=== PATIENT | male | born 1940 | race Caucasian/White ===

== ENCOUNTER 2017-02-25 16:44 | Inpatient (IN) ==
[2017-02-25] MEDS ORDERED: DILTIAZEM 50 MG/10 ML VIAL IV STA (17:06)
--- NOTE | 2017-02-25 17:12 | Emergency Department Note ---
Penny Recinos Rolonda, am scribing for, and in the presence of, Jimbo Izaguirre MD 17: 07. Zina Recinos James D, MD, personally performed the services described in this documentation, ascribed by Jane Francis in my presence, and it is both accurate and complete . Arrival - Arrival Chief Complaint: Arrhythmia/Palpitations Stated Complaint: rapid heart rate ED Nursing Triage Note: C/o palpitations-onset one hour ago. Denies SOB or CP. Mode of Arrival: Wheelchair Limitations: No Limitations Source: Patient, Old Records Reviewed, RN Notes Reviewed - History of Present Illness HPI Narrative: Pt is a 77 y/o male who presents to the ED with c/o heart palpitations with an onset of x1 hour ago. Pt has a PMHx of DM. Pt states that he can feel when his heart "gets in and out of rhythm". He states that he last f/u with yesterday. Pt denies CP, sweating, vertigo, and SOB. No other complaint/pain in ED. Onset (ago): hour(s) Consistency: constant Severity: moderate Severity scale (1-10): 3 Allergies/Adverse Reactions: Allergies Allergy/AdvReac Type Severity Reaction Status Date / Time No Known Allergies Allergy Verified 02/25/17 16:48 Review of System - Review of System 12 point system: reviewed and no additional remarkable complaints except as stated - Review of System Constitutional: Absent: fever Eyes: Absent: discharge, redness Head/Ears/Nose/Throat: Absent: earache Respiratory: Absent: cough Cardiovascular: Present: palpitations. Absent: chest pain Gastrointestinal: Absent: abdominal pain, nausea Genitourinary male: Absent: dysuria Musculoskeletal: Absent: arm pain, back pain Medical,Surgical,& Family Hx - Social History Smoking Status: Never smoker Frequency of Alcohol Use: None Type of Drug Use: None Exam Vital Signs: Vital Signs Temperature 97.4 F L 02/25/17 16:58 Pulse Rate 149 H 02/25/17 16:58 Respiratory Rate 98 H 02/25/17 16:58 Blood Pressure 96/54 02/25/17 16:58 O2 Sat by Pulse Oximetry 98 02/25/17 16:47 GENERAL: This is a well-nourished well-developed white male in no apparent distress. VITAL SIGNS: Reviewed HEENT: Head is atraumatic and normocephalic. Pupils are equal round react to light. Extraocular movements are intact. Oropharynx is benign with moist mucous membranes. NECK: Neck is soft and supple without tenderness. There are no masses. There is no lymphadenopathy. LUNGS: Lungs are clear to auscultation. Chest rises symmetrically. There is no chest wall tenderness. CV: Heart is irregularly irregular with rapid rate, without murmurs rubs or gallops. ABDOMEN: Abdomen is soft, nontender to palpation. There are no abdominal abnormal masses palpated. There is no organomegaly. Bowel sounds are present and active. SKIN: Skin is warm and dry. No rash. EXTREMITIES: Patient has full range of motion without tenderness. There is no pedal edema. NEUROLOGIC: Awake alert and oriented 4. Cranial nerves II through XII are grossly intact. Motor is 5 over 5 in all extremities bilaterally. Course - Consultations Consultation #1: Discussed with Dr. Gavin Muñoz. Patient will be admitted to their service. Initial orders written for him. He will assume care of patient upon their arrival to the [facility]. Time: 17:38 Results - Labs CBC & BMP: 02/25/17 17:22 Lab Results: I have reviewed the patients labs - EKG EKG results: interpreted by ERMD - Impressions EKG: Atrial fib with RVR, rate 149, right bundle branch block, nonspecific ST-T wave changes. - Diagnostic Findings Procedure: Chest x-ray: image reviewed by me (Old median sternotomy, no pleural effusions, no infiltrates.) Disposition Clinical Impression: Atrial fibrillation with RVR Case discussed with: patient Disposition: Still a Patient Condition: Stable Time of Disposition: 17:40
[2017-02-25] MEDS ORDERED: DILTIAZEM 100 MG VIAL.ADD IV ONE (17:14)
[2017-02-25] MEDS ORDERED: SODIUM CHLORIDE 0.9% 100 ML IV ONE (17:15)
[2017-02-25] MEDS ORDERED: DILTIAZEM 50 MG/10 ML VIAL IV ONE (17:15)
--- NOTE | 2017-02-25 17:18 | EKG Report ---
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
--- NOTE | 2017-02-25 17:26 | XRay Report ---
XR chest 1V portable Indication: Shortness of breath Comparison: None available Findings: The heart and mediastinum are within normal limits in size and configuration with cardiac surgery changes. The pulmonary vascularity is normal in caliber. No lung infiltrates, effusions, pneumothorax or other abnormality is demonstrated. Impression: No acute cardiac pulmonary disease. PROCEDURE INTERPRETED AT [facility] [place] DEPARTMENT OF RADIOLOGY Final Report Signed by: Dr. Tremaine Pérez
[2017-02-25 17:28] LABS: Basophils % 0.2 % (0.0-0.8); Eosinophils # 0.4 10*3/uL (0.0-0.87); Eosinophils % 4.3 % (0.00-10.9); Hematocrit 40.7 VOL% (42.0-52.0); Hemoglobin 14.1 GM/DL (14.0-18.0); Immature Granulocytes % 0.2 %; Immature Granulocytes Absolute 0.02 #; Lymphocytes # 2.1 10*3/uL (1.4-4.0); Lymphocytes % 24.2 % (21.2-54.2); Mean Corpuscular HGB Conc 34.6 GM/DL (32-36); Mean Corpuscular Hemoglobin 30 PG (27-34); Mean Corpuscular Volume 85.5 FL (87-102); Mean Platelet Volume 10.4 FL (9.6-12.0); Monocytes # 0.8 10*3/uL (0.11-0.8); Monocytes % 8.8 % (1.7-12.7); Neutrophils # 5.5 10*3/uL (1.4-7.4); Neutrophils % 62.3 % (38.7-73.9); Platelet Count 163 T/CUMM (130-400); Red Blood Count 4.76 MC/CUMM (3.8-5.5); Red Cell Distribution Width 11.9 % (9.3-17.3); White Blood Count 8.8 T/CUMM (4-12)
[2017-02-25] MEDS ORDERED: DILTIAZEM INJ 100 MG in SODIUM CHLORIDE 0.9% 100 ML IV SCH (17:30)
[2017-02-25 17:40] LABS: PT Patient Result 11.1 SECS; Partial Thromboplastin Time 28.2 SECS (0-40)
[2017-02-25 18:17] LABS: Alanine Aminotransferase 17 U/L (16-61); Albumin 3.4 G/DL (3.4-5.0); Alkaline Phosphatase 113 U/L (45-117); Aspartate Amino Transferase 15 U/L (0-37); Blood Urea Nitrogen 8 MG/DL (7-18); Calcium 9.2 MG/DL (8.5-10.1); Glucose 229 MG/DL (74-106); Osmolality,Calculated 272.2 MOS/KG (273-304); Potassium 4.1 MMOL/L (3.5-5.1); Sodium 134 MMOL/L (136-145); Total Protein 6.6 G/DL (6.4-8.3); Troponin I Only < 0.015 NG/ML (0.00-0.045)
[2017-02-25] MEDS ORDERED: DEXTROSE 50% 25 GM/50 ML VIAL IV PRN (20:13)
[2017-02-25] MEDS ORDERED: MAGNESIUM SULF RIDER 4 GM in PREMIX 1 EACH IV PRN (20:13)
[2017-02-25] MEDS ORDERED: GLUCAGON 1 MG VIAL IM PRN (20:13)
[2017-02-25] MEDS ORDERED: MAGNESIUM SULF RIDER 2 GM in PREMIX 1 EACH IV PRN (20:13)
[2017-02-25] MEDS ORDERED: ONDANSETRON 4 MG/2 ML VIAL IV PRN (20:13)
[2017-02-25] MEDS ORDERED: ENOXAPARIN 40 MG/0.4 ML SYRINGE SUBCUT SCH (20:30)
[2017-02-25] MEDS: INSULIN LISPRO 100 UNIT/ML SUBCUT SCH (20:55)
[2017-02-25] MEDS: SODIUM CHLORIDE 0.9% 1,000 ML IV SCH (21:02)
[2017-02-26] MEDS: INSULIN LISPRO 100 UNIT/ML SUBCUT SCH ×3 (07:51→16:25)
[2017-02-26] MEDS ORDERED: ASCORBIC ACID 500 MG TABLET PO SCH ×2 (15:27→21:00)
[2017-02-26 15:50] VITALS: BP 141/86
--- NOTE | 2017-02-26 15:50 | Cardiology History & Physical ---
Assessment and Plan (1) Atrial fibrillation with RVR Status: Acute Assessment and plan: The patient presented with atrial flutter with rapid ventricular response. He is converted to sinus rhythm. He is now feeling back to normal. He had a low magnesium level so I am going to supplement this. I am going to add vitamin C to his medical regimen. As noted in the HPI, he did not have any other symptoms associated with the palpitations. I think we can discharge him home with outpatient follow-up with his primary blind cleaner in the near future. Current Visit: Yes (2) Coronary artery disease Status: Acute Current Visit: Yes (3) History of heart bypass surgery Status: Acute Current Visit: Yes (4) History of aortic valve replacement with bioprosthetic valve Status: Acute Current Visit: Yes (5) Paroxysmal atrial fibrillation Status: Acute Current Visit: Yes (6) Chronic anticoagulation Status: Acute Current Visit: Yes (7) Hypertension Status: Acute Current Visit: Yes (8) Hyperlipidemia Status: Acute Current Visit: Yes History of Present Illness History of present illness: Mr. Krishnamurthy is a 77 year old male with a history of multiple medical problems including coronary artery disease status post bypass surgery and bioprosthetic aortic valve replacement in 2012, paroxysmal atrial fibrillation, hypertension, and hyperlipidemia. Patient came into the hospital after feeling palpitations for about an hour. In the emergency room he was found to be in atrial flutter with rapid ventricular response. The symptoms were moderate to severe. There were no specific exacerbating or relieving factors. There were no associated symptoms such as nausea or diaphoresis. He had a low magnesium level. He was started on IV diltiazem and his magnesium was repleted and he has converted back to sinus rhythm. He did not have any anginal symptoms, heart failure symptoms, orthopnea, PND, or peripheral edema associated with this. He is now feeling completely back to normal. He tells me that he has had multiple similar episodes in the past. Home Medications Medication Instructions Recorded Confirmed Type Apixaban [Eliquis] 5 mg PO BID 02/25/17 02/25/17 History Atorvastatin Calcium [Atorvastatin 40 mg PO 1600 02/25/17 02/25/17 History Calcium] Carvedilol [Carvedilol] 25 mg PO BID 02/25/17 02/25/17 History Ferrous Sulfate 325 mg PO TID 02/25/17 02/25/17 History Levothyroxine Sodium 25 mcg PO QAM 02/25/17 02/25/17 History [Levothyroxine Sodium] Magnesium Oxide 400 mg PO QAM 02/25/17 02/25/17 History Metformin HCl [Metformin HCl] 500 mg PO BID 02/25/17 02/25/17 History Tamsulosin HCl [Tamsulosin HCl] 0.4 mg PO QAM 02/25/17 02/25/17 History glipiZIDE [Glipizide] 10 mg PO BID 02/25/17 02/25/17 History raNITIdine HCl [Ranitidine HCl] 150 mg PO 1600 02/25/17 02/25/17 History Home Medications Medication Instructions Recorded Confirmed Type Apixaban [Eliquis] 5 mg PO BID 02/25/17 02/25/17 History Atorvastatin Calcium [Atorvastatin 40 mg PO 1600 02/25/17 02/25/17 History Calcium] Carvedilol [Carvedilol] 25 mg PO BID 02/25/17 02/25/17 History Ferrous Sulfate 325 mg PO TID 02/25/17 02/25/17 History Levothyroxine Sodium 25 mcg PO QAM 02/25/17 02/25/17 History [Levothyroxine Sodium] Magnesium Oxide 400 mg PO QAM 02/25/17 02/25/17 History Metformin HCl [Metformin HCl] 500 mg PO BID 02/25/17 02/25/17 History Tamsulosin HCl [Tamsulosin HCl] 0.4 mg PO QAM 02/25/17 02/25/17 History glipiZIDE [Glipizide] 10 mg PO BID 02/25/17 02/25/17 History raNITIdine HCl [Ranitidine HCl] 150 mg PO 1600 02/25/17 02/25/17 History Allergies Allergy/AdvReac Type Severity Reaction Status Date / Time No Known Allergies Allergy Verified 02/25/17 16:48 12 point system: reviewed and no additional remarkable complaints except as stated Medical,Surgical,& Family Hx - Medical History Neurology: History of: Cerebrovascular Accident - Surgical History Cardiac Surgeries: Sugical HX of: Cardiac Surgery (CABG) - Family History Family History: Reports;: Family Diabetes - Social History Smoking Status: Never smoker Frequency of Alcohol Use: None Type of Drug Use: None Cardiology Physical Exam - Constitutional Vitals: Vital Signs Temp Pulse Resp BP Pulse Ox 97.1 F L 61 12 145/76 97 02/26/17 12:00 02/26/17 12:00 02/26/17 12:00 02/26/17 12:00 02/26/17 12:00 Intake and Output 02/25/17 02/26/17 02/26/17 23:59 07:59 15:59 Intake Total 83 / 83 0 / 0 Output Total 100 / 100 1400 / 1400 Balance - -1400 / -1400 Intake: IV Cardizem Inj 100 mg In Ns 100 ml @ 10 MG/HR 10 mls /hr IV TITRATE BHAVANA Rx#: [id number] Oral 50 / 50 0 / 0 Output: Urine 100 / 100 1400 / 1400 Other: Voiding Method Urinal Urinal # Bowel Movements 1 Weight 93.61 kg 93.61 kg Patient Weight 02/26/17 23:59 Weight 93.61 kg Exam: General: Appears well developed, well nourished, no apparent distress HEENT: Normocephalic, atraumatic Neck: Supple Neck, Midline Trachea, No Bruit, No JVD Cardiac: Regular rhythm, 2/6 systolic murmur, no gallop, no rub Lungs: Clear to auscultation, No Wheeze, Rales, Rhonchi Neuro: Cranial Nerve 2-12 Intact, Motor Function Grossly Intact Abdomen: Soft, Active Bowel Sounds, No Masses, No Pulsations/Bruits Skin: Normal color, no rash Extremities: No Clubbing, No Cyanosis, No Edema, Normal Upper Extr. Pulses Musculoskeletal: No acute abnormality noted Psychiatric: The patient does not appear to be anxious or depressed Result/EKG - Labs CBC & BMP: 02/25/17 17:22 02/25/17 17:22 Lab Results: I have reviewed the past 24 hour labs Labs: Laboratory Results - last 24 hr 02/25/17 02/25/17 02/25/17 17:22 17:22 17:22 WBC 8.8 RBC 4.76 Hgb 14.1 Hct 40.7 L MCV 85.5 L MCH 30 MCHC 34.6 RDW 11.9 Plt Count 163 MPV 10.4 Neut % (Auto) 62.3 Lymph % (Auto) 24.2 [place] % (Auto) 8.8 Eos % (Auto) 4.3 Baso % (Auto) 0.2 Neut # (Auto) 5.5 Lymph # (Auto) 2.1 [place] # (Auto) 0.8 Eos # (Auto) 0.4 Baso # (Auto) 0.0 Immature Gran % 0.2 Nucleated RBC % 0.0 Immature Gran # 0.02 Nucleated RBCs # 0.00 INR 1.0 PT Patient/Control Mix 11.1 Circ Anticoag PTT 28.2 Sodium Potassium Chloride Carbon Dioxide Anion Gap BUN Creatinine GFR Calculation BUN/Creatinine Ratio Glucose POC Glucose Calculated Osmolality Calcium Magnesium 1.6 L Total Bilirubin AST ALT Alkaline Phosphatase Troponin I Total Protein Albumin Globulin Albumin/Globulin Ratio TSH 3rd Generation 02/25/17 02/25/17 02/26/17 17:22 20:53 07:43 WBC RBC Hgb Hct MCV MCH MCHC RDW Plt Count MPV Neut % (Auto) Lymph % (Auto) [place] % (Auto) Eos % (Auto) Baso % (Auto) Neut # (Auto) Lymph # (Auto) [place] # (Auto) Eos # (Auto) Baso # (Auto) Immature Gran % Nucleated RBC % Immature Gran # Nucleated RBCs # INR PT Patient/Control Mix Circ Anticoag PTT Sodium 134 L Potassium 4.1 Chloride 100 Carbon Dioxide 26 Anion Gap 12.1 BUN 8 Creatinine 1.10 GFR Calculation 82 BUN/Creatinine Ratio 7.00 Glucose 229 H POC Glucose 134 H 111 H Calculated Osmolality 272.2 L Calcium 9.2 Magnesium Total Bilirubin 0.50 AST 15 ALT 17 Alkaline Phosphatase 113 Troponin I < 0.015 Total Protein 6.6 Albumin 3.4 Globulin 3.2 Albumin/Globulin Ratio 1.0 L TSH 3rd Generation 2.190 02/26/17 11:39 WBC RBC Hgb Hct MCV MCH MCHC RDW Plt Count MPV Neut % (Auto) Lymph % (Auto) [place] % (Auto) Eos % (Auto) Baso % (Auto) Neut # (Auto) Lymph # (Auto) [place] # (Auto) Eos # (Auto) Baso # (Auto) Immature Gran % Nucleated RBC % Immature Gran # Nucleated RBCs # INR PT Patient/Control Mix Circ Anticoag PTT Sodium Potassium Chloride Carbon Dioxide Anion Gap BUN Creatinine GFR Calculation BUN/Creatinine Ratio Glucose POC Glucose 184 H Calculated Osmolality Calcium Magnesium Total Bilirubin AST ALT Alkaline Phosphatase Troponin I Total Protein Albumin Globulin Albumin/Globulin Ratio TSH 3rd Generation - EKG EKG results: interpreted by me
--- NOTE | 2017-02-26 16:00 | Discharge Summary ---
Hospital Course - Hospital Course Hospital Course: Mr. Krishnamurthy is a 77 year old male with a history of multiple medical problems including coronary artery disease status post bypass surgery and bioprosthetic aortic valve replacement in 2013, paroxysmal atrial fibrillation, hypertension, and hyperlipidemia. Patient came into the hospital after feeling palpitations for about an hour. In the emergency room he was found to be in atrial flutter with rapid ventricular response. The symptoms were moderate to severe. There were no specific exacerbating or relieving factors. There were no associated symptoms such as nausea or diaphoresis. He had a low magnesium level. He was started on IV diltiazem and his magnesium was repleted and he has converted back to sinus rhythm. He did not have any anginal symptoms, heart failure symptoms, orthopnea, PND, or peripheral edema associated with this. He is now feeling completely back to normal. He tells me that he has had multiple similar episodes in the past. He is already on appropriate chronic anticoagulation and medical therapy. I am going to add vitamin C and supplement his magnesium. I am going to discharge him home at this time for outpatient follow-up with his primary pre certification specialist . Diagnosis - Discharge Diagnosis (1) Atrial fibrillation with RVR Status: Acute (2) Coronary artery disease Status: Acute (3) History of heart bypass surgery Status: Acute (4) History of aortic valve replacement with bioprosthetic valve Status: Acute (5) Paroxysmal atrial fibrillation Status: Acute (6) Chronic anticoagulation Status: Acute (7) Hypertension Status: Acute (8) Hyperlipidemia Status: Acute Discharge Plan - Discharge Data Disposition: Disch To Home/Self Care - Discharge Medications New Ascorbic Acid [Vitamin C] 1,000 mg PO BID #120 tablet Continue Levothyroxine Sodium 25 mcg PO QAM glipiZIDE [Glipizide] 10 mg PO BID Tamsulosin HCl 0.4 mg PO QAM Apixaban [Eliquis] 5 mg PO BID Carvedilol 25 mg PO BID Atorvastatin Calcium 40 mg PO 1600 raNITIdine HCl [Ranitidine HCl] 150 mg PO 1600 Metformin HCl 500 mg PO BID Ferrous Sulfate 325 mg PO TID Changed Magnesium Oxide 400 mg PO BID #0 - Follow Up or Referral Follow Up: Jayashree Rodriguez MD [Physician] - (He can follow-up with her as scheduled in a few weeks.) - Forms/Instructions Exam - Constitutional Vitals: Period Temp Pulse Resp BP Sys/Warner Pulse Ox Last 24 Hr 97.0 F-97.8 F 58-149 12-98 96-149/54-90 96-100 Discharge Results Labs on day of discharge: Labs from last 24 hours 02/26/17 02/26/17 02/25/17 11:39 07:43 20:53 WBC RBC Hgb Hct MCV MCH MCHC RDW Plt Count MPV Neut % (Auto) Lymph % (Auto) [place] % (Auto) Eos % (Auto) Baso % (Auto) Neut # (Auto) Lymph # (Auto) [place] # (Auto) Eos # (Auto) Baso # (Auto) Immature Gran % Nucleated RBC % Immature Gran # Nucleated RBCs # INR PT Patient/Control Mix Circ Anticoag PTT Sodium Potassium Chloride Carbon Dioxide Anion Gap BUN Creatinine GFR Calculation BUN/Creatinine Ratio Glucose POC Glucose 184 H 111 H 134 H Calculated Osmolality Calcium Magnesium Total Bilirubin AST ALT Alkaline Phosphatase Troponin I Total Protein Albumin Globulin Albumin/Globulin Ratio TSH 3rd Generation 02/25/17 02/25/17 02/25/17 17:22 17:22 17:22 WBC 8.8 RBC 4.76 Hgb 14.1 Hct 40.7 L MCV 85.5 L MCH 30 MCHC 34.6 RDW 11.9 Plt Count 163 MPV 10.4 Neut % (Auto) 62.3 Lymph % (Auto) 24.2 [place] % (Auto) 8.8 Eos % (Auto) 4.3 Baso % (Auto) 0.2 Neut # (Auto) 5.5 Lymph # (Auto) 2.1 [place] # (Auto) 0.8 Eos # (Auto) 0.4 Baso # (Auto) 0.0 Immature Gran % 0.2 Nucleated RBC % 0.0 Immature Gran # 0.02 Nucleated RBCs # 0.00 INR PT Patient/Control Mix Circ Anticoag PTT Sodium 134 L Potassium 4.1 Chloride 100 Carbon Dioxide 26 Anion Gap 12.1 BUN 8 Creatinine 1.10 GFR Calculation 82 BUN/Creatinine Ratio 7.00 Glucose 229 H POC Glucose Calculated Osmolality 272.2 L Calcium 9.2 Magnesium 1.6 L Total Bilirubin 0.50 AST 15 ALT 17 Alkaline Phosphatase 113 Troponin I < 0.015 Total Protein 6.6 Albumin 3.4 Globulin 3.2 Albumin/Globulin Ratio 1.0 L TSH 3rd Generation 2.190 02/25/17 17:22 WBC RBC Hgb Hct MCV MCH MCHC RDW Plt Count MPV Neut % (Auto) Lymph % (Auto) [place] % (Auto) Eos % (Auto) Baso % (Auto) Neut # (Auto) Lymph # (Auto) [place] # (Auto) Eos # (Auto) Baso # (Auto) Immature Gran % Nucleated RBC % Immature Gran # Nucleated RBCs # INR 1.0 PT Patient/Control Mix 11.1 Circ Anticoag PTT 28.2 Sodium Potassium Chloride Carbon Dioxide Anion Gap BUN Creatinine GFR Calculation BUN/Creatinine Ratio Glucose POC Glucose Calculated Osmolality Calcium Magnesium Total Bilirubin AST ALT Alkaline Phosphatase Troponin I Total Protein Albumin Globulin Albumin/Globulin Ratio TSH 3rd Generation DS: Provider Date of admission: 02/25/17 19:49 Primary care physician: . No PCP Attending physician on admission: Kyle Muñoz MD Discharging clinician: Kyle Muñoz MD
[2017-02-26] MEDS: SODIUM CHLORIDE 0.9% 1,000 ML IV SCH (16:24)
== END 2017-02-26 17:54 | disposition home or self-care (01) | DRG 310 ==
LOC: N.ED 16:44 → N.EDINP 19:49 → N.TELES 19:59
PROVIDERS: ADMIT Internal Medicine Cardiovascular Disease; ATTEND Internal Medicine Cardiovascular Disease

== ENCOUNTER 2017-05-03 14:59 | Observation (INO) ==
--- NOTE | 2017-05-03 15:57 | XRay Report ---
2 view chest 05/03/2017 3:39 PM Indication: Chest pain, arrhythmia Comparison: February 25, 2017 Findings: Cardiomediastinal contours are stable post coronary artery bypass with sternotomy wires and midline. Granulomatous changes within the right lung base. No acute osseous abnormalities. Visualized upper abdomen demonstrates no acute pathology. Impression: No acute cardiopulmonary findings PROCEDURE INTERPRETED AT [facility] DEPARTMENT OF RADIOLOGY Final Report Signed by: Germania Nash MD
[2017-05-03 15:59] LABS: Basophils % 0.4 % (0.0-0.8); Eosinophils # 0.2 10*3/uL (0.0-0.87); Eosinophils % 2.2 % (0.00-10.9); Hematocrit 40.9 VOL% (42.0-52.0); Hemoglobin 13.7 GM/DL (14.0-18.0); Immature Granulocytes % 0.3 %; Immature Granulocytes Absolute 0.02 #; Lymphocytes # 1.9 10*3/uL (1.4-4.0); Lymphocytes % 24.4 % (21.2-54.2); Mean Corpuscular HGB Conc 33.5 GM/DL (32-36); Mean Corpuscular Hemoglobin 29 PG (27-34); Mean Corpuscular Volume 86.5 FL (87-102); Mean Platelet Volume 10.1 FL (9.6-12.0); Monocytes # 0.7 10*3/uL (0.11-0.8); Monocytes % 8.4 % (1.7-12.7); Neutrophils % 64.3 % (38.7-73.9); Platelet Count 170 T/CUMM (130-400); Red Blood Count 4.73 MC/CUMM (3.8-5.5); Red Cell Distribution Width 12.1 % (9.3-17.3); White Blood Count 7.8 T/CUMM (4-12)
[2017-05-03 16:07] LABS: PT Patient Result 10.9 SECS
--- NOTE | 2017-05-03 16:24 | Emergency Department Note ---
Arrival - Arrival Chief Complaint: Arrhythmia/Palpitations Stated Complaint: Heart rate. low BP ED Nursing Triage Note: states that early this am. pt had low bp and increased heart rate. states it went away and started again about 1400 this afternoon Mode of Arrival: Wheelchair Limitations: No Limitations Source: Patient, Family Time Seen by Provider: 05/03/17 16:12 - History of Present Illness HPI Narrative: The patient complains of an episode of weakness this morning during which he was having palpitations and felt like his heart was beating rapidly. This resolved but returned around 2:00 this afternoon. It resolved again prior to arrival. The also reports his blood pressure was low at 77/50. He denies any shortness of breath, chest pain, diaphoresis, nausea, vomiting or any other symptoms. Patient has a history of similar episodes in the past felt to be due to hypomagnesemia. He cannot tell me what rhythm he was going into but says he has not had any episodes since discharge in February. He has been taking p.o. magnesium and has not missed any doses. According to the old chart the patient has a history of bypass, valve replacement and paroxysmal atrial fibrillation. The patient has a history of hypothyroidism and is on Synthroid. He reports no recent increases in his Synthroid. Allergies/Adverse Reactions: Allergies Allergy/AdvReac Type Severity Reaction Status Date / Time No Known Allergies Allergy Verified 02/25/17 16:48 Home Medications: Home Medications Medication Instructions Recorded Confirmed Type Apixaban [Eliquis] 5 mg PO BID 02/25/17 05/03/17 History Carvedilol 25 mg PO BID 02/25/17 05/03/17 History Ferrous Sulfate 325 mg PO TID 02/25/17 05/03/17 History Levothyroxine Sodium 25 mcg PO QAM 02/25/17 05/03/17 History Metformin HCl 500 mg PO BID 02/25/17 05/03/17 History Tamsulosin HCl 0.4 mg PO QAM 02/25/17 05/03/17 History glipiZIDE [Glipizide] 10 mg PO BID 02/25/17 05/03/17 History raNITIdine HCl [Ranitidine HCl] 150 mg PO QAM 02/25/17 05/03/17 History Ascorbic Acid [Vitamin C] 1,000 mg PO BID #120 tablet 02/26/17 05/03/17 Rx Magnesium Oxide 400 mg PO BID #0 02/26/17 05/03/17 Rx Pravastatin Sodium 40 mg PO BEDTIME 05/03/17 05/03/17 History Review of System - Review of System 12 point system: reviewed and no additional remarkable complaints except as stated - Review of System Constitutional: Present: weakness. Absent: diaphoresis, fever Head/Ears/Nose/Throat: Absent: nasal drainage, sore throat Respiratory: Absent: cough, respiratory distress, wheezing Cardiovascular: Present: palpitations. Absent: chest pain, dyspnea on exertion , orthopnea, edema, syncope Gastrointestinal: Absent: nausea, vomiting Musculoskeletal: Absent: arm pain, back pain, neck pain Medical,Surgical,& Family Hx - Medical History Cardio: History of: Cardiac Dysrhythmia Neurology: History of: Cerebrovascular Accident Endocrine: History of: Diabetes Mellitus (NIDDM), Dyslipidemia Gastrointestinal: History of: GERD - Surgical History Cardiac Surgeries: Sugical HX of: Cardiac Surgery (CABG versus valve replacement ) - Family History Family History: Reports;: Family Diabetes - Social History Smoking Status: Never smoker Frequency of Alcohol Use: None Type of Drug Use: None Exam Physical Examination: GENERAL: Alert. No acute distress. HEENT: Normocephalic and atraumatic. There is no nasal drainage. No pharyngeal erythema or exudate. NECK: Normal inspection. Supple. No lymphadenopathy or meningismus. LUNGS: No respiratory distress. Clear to auscultation bilaterally, no wheezes, rales or rhonchi. HEART: Regular rate and rhythm. ABDOMEN: Soft, nontender and nondistended with normoactive bowel sounds. BACK: Normal inspection. SKIN: Color normal. Warm and dry. EXTREMITIES: Nontender. Normal range of motion. No pedal edema. NEUROLOGICAL/PSYCHIATRIC: Alert and oriented -3 with normal mood and affect. Cranial nerves normal. No motor or sensory deficit. Vital Signs: Vital Signs Temperature 97.8 F 05/03/17 15:07 Pulse Rate 86 05/03/17 15:07 Respiratory Rate 18 05/03/17 15:07 Blood Pressure 115/69 05/03/17 15:07 O2 Sat by Pulse Oximetry 98 05/03/17 15:07 Course - Reevaluation(s) Reevaluation #1: The patient has been completely asymptomatic in the ER. He has remained in sinus rhythm. Given his history of paroxysmal A. fib in the significant drop in his blood pressure and the weakness he had, I think it best to admit him overnight for observation. I discussed the patient with Dr. Muñoz who agrees. Time: 18:16 Results - Labs CBC & BMP: 05/03/17 15:41 05/03/17 15:41 Lab Results: I have reviewed the patients labs Labs: Laboratory Tests 05/03/17 05/03/17 05/03/17 15:41 15:41 15:41 INR 1.0 Magnesium 2.0 Total Bilirubin 0.40 AST 10 ALT 21 Troponin I < 0.015 TSH 3rd Generation 0.627 Ur Specific Erin Urine RBC Urine Bacteria 05/03/17 17:04 INR Magnesium Total Bilirubin AST ALT Troponin I TSH 3rd Generation Ur Specific [place] 1.012 Urine RBC 26 Urine Bacteria Occasional - Impressions Chest x-ray shows no acute cardiopulmonary abnormality. EKG shows a sinus rhythm at 83 with first-degree AV block and a right bundle branch block. Disposition Clinical Impression: Palpitations, History of aortic valve replacement with bioprosthetic valve, Paroxysmal atrial fibrillation, History of heart bypass surgery Case discussed with: patient, patient's family Disposition: Still a Patient Condition: Stable Time of Disposition: 18:12
[2017-05-03 16:40] LABS: Alanine Aminotransferase 21 U/L (16-61); Albumin 3.3 G/DL (3.4-5.0); Alkaline Phosphatase 124 U/L (45-117); Aspartate Amino Transferase 10 U/L (0-37); Blood Urea Nitrogen 13 MG/DL (7-18); Calcium 9.2 MG/DL (8.5-10.1); Glucose 209 MG/DL (74-106); Osmolality,Calculated 275.1 MOS/KG (273-304); Potassium 4.2 MMOL/L (3.5-5.1); Sodium 135 MMOL/L (136-145); Thyroid Stimulating Hormone 0.627 uIU/ml (0.358-3.74); Total Protein 6.5 G/DL (6.4-8.3); Troponin I Only < 0.015 NG/ML (0.00-0.045)
[2017-05-03 17:17] LABS: Apearance,Urine CLEAR (Clear); Bacteria,Urine Occasional /HPF (Few); Bilirubin,Urine Negative (Negative); Blood, Urine Negative (Negative); Glucose,Urine (UA) 50 mg/dL (Negative); Ketones,Urine Negative (Negative); Mucus,Urine Occasional /LPF (Occasional); Nitrite,Urine Negative (Negative); Protein,Urine 30 MG/DL; RBC,Urine 26 /HPF (0-4); Squamous Epithelial Cell,Urine Occasional /HPF (0-10); Urine Color Yellow (Yellow); Urine Specific Gravity 1.012 (1.001-1.035); Urine Urobilinogen < 2.0 EU/DL (0.2-1.0); WBC,Urine <1 /HPF (0-6)
[2017-05-03 17:24] LABS: Barbiturates Screen,Urine Negative (Negative); Benzodiazepines Screen,Urine Negative (Negative); Cannabinoid Screen,Urine Negative (Negative); Opiate Screen,Urine Negative (Negative); Phencyclidine Screen,Urine Negative (Negative)
[2017-05-03] MEDS ORDERED: MAGNESIUM SULF RIDER 4 GM in PREMIX 1 EACH IV PRN (20:37)
[2017-05-03] MEDS ORDERED: GLUCAGON 1 MG VIAL IM PRN (20:37)
[2017-05-03] MEDS ORDERED: DEXTROSE 50% 25 GM/50 ML SYRINGE IV PRN (20:37)
[2017-05-03] MEDS ORDERED: ONDANSETRON 4 MG/2 ML VIAL IV PRN (20:37)
[2017-05-03] MEDS ORDERED: MAGNESIUM SULF RIDER 2 GM in PREMIX 1 EACH IV PRN (20:37)
[2017-05-03] MEDS ORDERED: PRAVASTATIN 40 MG TABLET PO SCH (21:00)
[2017-05-03] MEDS: glipiZIDE 10 MG TABLET PO SCH (21:46)
[2017-05-03] MEDS: metFORMIN 500 MG TABLET PO SCH (21:46)
[2017-05-03] MEDS: CARVEDILOL 25 MG TABLET PO SCH (21:46)
[2017-05-03] MEDS: MAGNESIUM OXIDE 400 MG TABLET PO SCH (21:47)
[2017-05-03] MEDS: APIXABAN 5 MG TABLET PO SCH (21:47)
[2017-05-04] MEDS ORDERED: LEVOTHYROXINE 25 MCG TABLET PO SCH (07:00)
--- NOTE | 2017-05-04 08:44 | Order Completion Report ---
See report scanned to EMR
[2017-05-04] MEDS: APIXABAN 5 MG TABLET PO SCH (08:51)
[2017-05-04] MEDS: CARVEDILOL 25 MG TABLET PO SCH (08:51)
[2017-05-04] MEDS: glipiZIDE 10 MG TABLET PO SCH (08:51)
[2017-05-04] MEDS: metFORMIN 500 MG TABLET PO SCH (08:52)
[2017-05-04] MEDS: MAGNESIUM OXIDE 400 MG TABLET PO SCH (08:52)
[2017-05-04] MEDS ORDERED: FAMOTIDINE 20 MG TABLET PO SCH (09:00)
[2017-05-04] MEDS ORDERED: TAMSULOSIN 0.4 MG CAPSULE PO SCH (09:00)
[2017-05-04] MEDS ORDERED: PANTOPRAZOLE 40 MG TABLET PO SCH (09:00)
--- NOTE | 2017-05-04 09:40 | Cardiology History & Physical ---
Addendum entered and electronically signed by Laury Perry NP 05/04/17 09: 59: ADDENDUM: Patient was seen by Dr. Rios this morning. In the past, patient has been counseled regarding need for event monitor and/or Linq device. In the past , he has declined. However, he is agreeable for Link device implant given the fact that he continues to have palpitations, syncope and near syncope. Patient is on Eliquis. He would like to be discharged home and follow-up for return with implantation of Link device. We are sending this for review with precertification department. We will schedule him for Link device implant by Dr. Rios Tuesday, May 06, 2017 at 0 800. He IS NOT to resume Eliquis at this time but will be re-resumed after implantation. Also, patient will be scheduled for outpatient sleep study evaluation with Dr. Singletary. In my note below, stated he was scheduled for an echocardiogram this week. However, underwent echo May 02, 2017 at [facility] which revealed no significant abnormalities, EF 55%. Original Note: <Laury Perry - Last Filed: 05/04/17 08:55> Assessment and Plan - Time spent with patient Time spent with patient: Greater than 30 minutes (1) Sleep disorder Status: Chronic Assessment and plan: SEE PLAN OF CARE LISTED BELOW Current Visit: Yes (2) History of aortic valve replacement with bioprosthetic valve Status: Chronic Assessment and plan: SEE PLAN OF CARE LISTED BELOW Current Visit: Yes (3) History of heart bypass surgery Status: Chronic Assessment and plan: SEE PLAN OF CARE LISTED BELOW Current Visit: Yes (4) Palpitations Status: Acute Assessment and plan: SEE PLAN OF CARE LISTED BELOW Current Visit: Yes (5) Paroxysmal atrial fibrillation Status: Chronic Assessment and plan: SEE PLAN OF CARE LISTED BELOW Current Visit: Yes (6) Chronic anticoagulation Status: Chronic Assessment and plan: SEE PLAN OF CARE LISTED BELOW Current Visit: No (7) Coronary artery disease Status: Chronic Assessment and plan: SEE PLAN OF CARE LISTED BELOW Current Visit: No (8) Hyperlipidemia Status: Chronic Assessment and plan: SEE PLAN OF CARE LISTED BELOW Current Visit: No (9) Hypertension Status: Chronic Assessment and plan: SEE PLAN OF CARE LISTED BELOW Current Visit: No History of Present Illness Chief complaint: Palpitations, hypotension 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 Krishnamurthy, 77WM, with risk factors significant for: Known CAD (status post CABG and AVR with tissue valve 2012), hypertension, dyslipidemia, diabetes, CVA , sedentary lifestyle. History of paroxysmal atrial fibrillation for which he takes Eliquis for stroke prevention. Patient did have stroke after his CABG and again this past year. At that time however, he was not taking Eliquis. No additional CVA or TIA since initiation of Eliquis. Admitted May 03, 2017 after experiencing an episode of weakness upon waking. Remarks that he felt his heart was racing and he was weak. He summoned his who took his blood pressure and it was reportedly 77/50, heart rate 130s-140s. This lasted approximately 1-2 hours. He was brought to the emergency department. Vital signs have been stable, no orthostasis and her EKG reflects regular sinus rhythm with PACs. Denies chest pain, heaviness or tightness. Denies shortness of breath. Patient did have a fall recently and subsequently underwent CT of his head given the fact he is taking an anticoagulant. CT of head was negative for an acute event or hemorrhage. In the past, patient has been counseled regarding wearing an event monitor and/or reveal monitor. He has declined both in the past. Patient denies recent change in medications or use of steroids. Cardiac biomarkers negative, labs are stable. EKG does not reveal acute TX. Regular sinus rhythm with PACs noted. Patient does have symptoms concerning for sleep apnea. States he does snore loudly and in fact so loudly that his has now moved to another room. He has never been assessed for sleep apnea. We will arrange for outpatient sleep study. Patient was scheduled for an echocardiogram this week with office. I will verify that he keeps this appointment. Also, will investigate to see whether patient has home health. He certainly has numerous comorbidities and is somewhat debilitated and certainly could benefit from home health if he does not already have this service. Also, query as to whether may be medication confusion could have contributed to his stated hypotension. Will ask that they evaluate and help manage his home medications as well. I will further discuss with Dr. Rios and await additional recommendations. Patient may be eligible for discharge this afternoon. IMPRESSION/PLAN: 1. PALPITATIONS - palpitations may be related to his APCs. Unfortunately, no EKG has been scanned and on arrival to the ER. Telemetry reveals only regular sinus rhythm with occasional PAC. EKG this morning reveals the same. 2. APC - occasional PACs noted on telemetry. Previously had palpitations related to hypomagnesemia. Magnesium is stable at 2.0. May consider increasing magnesium from twice daily dosing to 3 times daily dosing. Cannot escalate beta-blockade due to blood pressure being well controlled on current regimen 3. CAD S/P CABG AND AVR (tissue valve) - [address] rao. 4. HISTORY OF CVA - post CABG and subsequently 2 years later. No recurrent CVA/TIA since Eliquis initiated. 5. PAF - history of paroxysmal atrial fibrillation. No recorded atrial fibrillation noted during hospital stay. He has had frequent PACs. Labs are stable 6. HIGH RISK MED - Eliquis for stroke prevention. 7. HYPERTENSION - history of underlying hypertension. Patient reports he had hypotension this morning the blood pressure readings here do not reflect such. We will continue beta-blockade. 8. DYSLIPIDEMIA - continue Pravastatin. Recent FLP in clinic again for no need to repeat. 9. DIABETES - continue current plan of care. Usually well controlled. 10. SLEEP DISORDER - concerning for sleep apnea. Will schedule outpatient evaluation with Dr. Singletary for possible sleep disorder. Home Medications Medication Instructions Recorded Confirmed Type Carvedilol 25 mg PO BID 02/25/17 05/03/17 History Ferrous Sulfate 325 mg PO TID 02/25/17 05/03/17 History Levothyroxine Sodium 25 mcg PO QAM 02/25/17 05/03/17 History Metformin HCl 500 mg PO BID 02/25/17 05/03/17 History Tamsulosin HCl 0.4 mg PO QAM 02/25/17 05/03/17 History glipiZIDE [Glipizide] 10 mg PO BID 02/25/17 05/03/17 History raNITIdine HCl [Ranitidine HCl] 150 mg PO QAM 02/25/17 05/03/17 History Ascorbic Acid [Vitamin C] 1,000 mg PO BID #120 tablet 02/26/17 05/03/17 Rx Pravastatin Sodium 40 mg PO BEDTIME 05/03/17 05/03/17 History Magnesium Oxide 400 mg PO TID #90 tablet 05/04/17 Rx Allergies Allergy/AdvReac Type Severity Reaction Status Date / Time No Known Allergies Allergy Verified 02/25/17 16:48 Review of systems: REVIEW OF SYSTEMS: - Constitutional Constitutional: Present: Fatigue. Absent: syncope, anorexia, night sweats - EENT Eyes: Absent: blurry vision, loss of vision, diplopia Ears: Absent: decreased hearing, ear pain, ear discharge - Cardiovascular Cardiovascular: Denies: chest pain with exertion, dyspnea on exertion, edema. Recent palpitations. Absent: chest pain with deep breath, claudication - Respiratory Respiratory: Denies: FREIRE, cough. Absent: wheezing, hemoptysis, change in phlegm color - Gastrointestinal Gastrointestinal: Denies: constipation. Absent: abdominal pain, hematemesis, hematochezia, melena, change in bowel habits, nausea - Genitourinary Genitourinary: Absent: difficulty urinating, dysuria, urinary hesitancy, flank pain - Musculoskeletal Musculoskeletal: Present: back pain Absent: joint swelling, muscle cramps, muscle weakness - Neurological Neurological: Present: Poor gait with fall recently. See HPI. Absent: dizziness, hemiparesis - Psychiatric Psychiatric: Absent: anxiety, depression, difficulty concentrating - Endocrine Endocrine: Present: fatigue. Absent: cold intolerance, heat intolerance, polyuria, polyphagia, polydipsia - Hematologic/Lymphatic Hematologic/Lymphatic: Present: easy bruising. Absent: easy bleeding -Integumentary Integumentary: Absent: lesions, rashes, skin breakdown Medical,Surgical,& Family Hx - Medical History Cardio: History of: Cardiac Dysrhythmia, Cerebrovascular Disease, CAD, Hypertension, Valvular Heart Disease Neurology: History of: Cerebrovascular Accident Endocrine: History of: Diabetes Mellitus (NIDDM), Dyslipidemia Gastrointestinal: History of: GERD - Surgical History Cardiac Surgeries: Sugical HX of: Cardiac Surgery (CABG versus valve replacement ) - Family History Family History: Reports;: Family Diabetes - Social History Smoking Status: Former smoker Have you smoked in the last 12 months: No Frequency of Alcohol Use: None Type of Drug Use: None Marital Status: Lives With:: Spouse Functional capacity: independent ambulation Cardiology Physical Exam - Constitutional Vitals: Vital Signs Temp Pulse Resp BP Pulse Ox 97.8 F 80 20 135/85 98 05/04/17 08:00 05/04/17 08:00 05/04/17 08:00 05/04/17 08:00 05/04/17 08:00 Intake and Output 05/03/17 05/04/17 05/04/17 23:59 07:59 15:59 Intake Total 240 / 240 200 / 200 Output Total 475 / 475 Balance 240 / 240 -275 / -275 Intake: Oral 240 / 240 200 / 200 Output: Urine 475 / 475 Other: Voiding Method Urinal # Voids 1 # Bowel Movements 2 Weight 89.84 kg 90.265 kg Patient Weight 05/04/17 23:59 Weight 90.265 kg Exam: General: [Appears well with no apparent distress.] [Pleasant and cooperative. ] [Appears comfortable.] HEENT: [PERRL, normocephalic, atraumatic. Mucous membranes moist. No jaundice noted. Conjunctiva moist and clear, sclerae anicteric] Neck: No JVD/HJR, no thyromegaly or lymphadenopathy noted. No carotid bruit appreciated Cardiac: [Regular rate and rhythm.] [Snap of aortic valve auscultated. Lungs: [Clear to auscultation without accessory muscle use to assist the respiratory pattern.] Not requiring oxygen Abdomen: Soft, bowel sounds normoactive. Nontender and nondistended. No abdominal bruit or thrill noted. No masses noted. Musculoskeletal: No fluid collection. Decreased range of motion is noted. Extremities: No clubbing, cyanosis noted. [ No edema noted.] Upper extremity pulses 2+. Lower extremity pulses 2+. Capillary refill less than 3 seconds. Skin: No unusual lesions or rashes. No skin breakdown appreciated. Neuro: Awake, alert and oriented 3. Moves all extremities well without hemiparesis or paralysis. No essential tremor is appreciated. Result/EKG - Labs CBC & BMP: 05/03/17 15:41 05/03/17 15:41 Lab Results: I have reviewed the past 24 hour labs Labs: Laboratory Results - last 24 hr 05/03/17 05/03/17 05/03/17 15:41 15:41 15:41 WBC 7.8 RBC 4.73 Hgb 13.7 L Hct 40.9 L MCV 86.5 L MCH 29 MCHC 33.5 RDW 12.1 Plt Count 170 MPV 10.1 Neut % (Auto) 64.3 Lymph % (Auto) 24.4 [place] % (Auto) 8.4 Eos % (Auto) 2.2 Baso % (Auto) 0.4 Neut # (Auto) 5.0 Lymph # (Auto) 1.9 [place] # (Auto) 0.7 Eos # (Auto) 0.2 Baso # (Auto) 0.0 Immature Gran % 0.3 Nucleated RBC % 0.0 Immature Gran # 0.02 Nucleated RBCs # 0.00 Immature Plt Fraction 0.0 INR 1.0 PT Patient/Control Mix 10.9 Sodium Potassium Chloride Carbon Dioxide Anion Gap BUN Creatinine GFR Calculation BUN/Creatinine Ratio Glucose POC Glucose Calculated Osmolality Calcium Magnesium 2.0 Total Bilirubin AST ALT Alkaline Phosphatase Troponin I Total Protein Albumin Globulin Albumin/Globulin Ratio TSH 3rd Generation Urine Color Urine Appearance Urine pH Ur Specific [place] Urine Protein Urine Glucose (UA) Urine Ketones Urine Blood Urine Nitrate Urine Bilirubin Urine Urobilinogen Urine Leukocytes Urine RBC Urine WBC Ur Squamous Epith Cells Urine Bacteria Urine Mucus Ur Culture Indicated? Urine Opiates Screen Ur Barbiturates Screen Ur Phencyclidine Scrn U Amphetamine/Methamph U Benzodiazepines Scrn U Cocaine Metab Screen U Cannabinoids Screen 05/03/17 05/03/17 05/03/17 15:41 17:04 17:04 WBC RBC Hgb Hct MCV MCH MCHC RDW Plt Count MPV Neut % (Auto) Lymph % (Auto) [place] % (Auto) Eos % (Auto) Baso % (Auto) Neut # (Auto) Lymph # (Auto) [place] # (Auto) Eos # (Auto) Baso # (Auto) Immature Gran % Nucleated RBC % Immature Gran # Nucleated RBCs # Immature Plt Fraction INR PT Patient/Control Mix Sodium 135 L Potassium 4.2 Chloride 100 Carbon Dioxide 27 Anion Gap 12.2 BUN 13 Creatinine 1.40 H GFR Calculation 59 BUN/Creatinine Ratio 9.00 Glucose 209 H POC Glucose Calculated Osmolality 275.1 Calcium 9.2 Magnesium Total Bilirubin 0.40 AST 10 ALT 21 Alkaline Phosphatase 124 H Troponin I < 0.015 Total Protein 6.5 Albumin 3.3 L Globulin 3.2 Albumin/Globulin Ratio 1.0 L TSH 3rd Generation 0.627 Urine Color Yellow Urine Appearance Clear Urine pH 5.0 Ur Specific [place] 1.012 Urine Protein 30 Urine Glucose (UA) 50 Urine Ketones Negative Urine Blood Negative Urine Nitrate Negative Urine Bilirubin Negative Urine Urobilinogen < 2.0 H Urine Leukocytes Negative Urine RBC 26 Urine WBC <1 Ur Squamous Epith Cells Occasional Urine Bacteria Occasional Urine Mucus Occasional Ur Culture Indicated? Not indicated Urine Opiates Screen Negative Ur Barbiturates Screen Negative Ur Phencyclidine Scrn Negative U Amphetamine/Methamph Negative U Benzodiazepines Scrn Negative U Cocaine Metab Screen Negative U Cannabinoids Screen Negative 05/03/17 05/03/17 05/04/17 20:36 20:57 00:06 WBC RBC Hgb Hct MCV MCH MCHC RDW Plt Count MPV Neut % (Auto) Lymph % (Auto) [place] % (Auto) Eos % (Auto) Baso % (Auto) Neut # (Auto) Lymph # (Auto) [place] # (Auto) Eos # (Auto) Baso # (Auto) Immature Gran % Nucleated RBC % Immature Gran # Nucleated RBCs # Immature Plt Fraction INR PT Patient/Control Mix Sodium Potassium Chloride Carbon Dioxide Anion Gap BUN Creatinine GFR Calculation BUN/Creatinine Ratio Glucose POC Glucose 138 H Calculated Osmolality Calcium Magnesium Total Bilirubin AST ALT Alkaline Phosphatase Troponin I < 0.015 < 0.015 Total Protein Albumin Globulin Albumin/Globulin Ratio TSH 3rd Generation Urine Color Urine Appearance Urine pH Ur Specific [place] Urine Protein Urine Glucose (UA) Urine Ketones Urine Blood Urine Nitrate Urine Bilirubin Urine Urobilinogen Urine Leukocytes Urine RBC Urine WBC Ur Squamous Epith Cells Urine Bacteria Urine Mucus Ur Culture Indicated? Urine Opiates Screen Ur Barbiturates Screen Ur Phencyclidine Scrn U Amphetamine/Methamph U Benzodiazepines Scrn U Cocaine Metab Screen U Cannabinoids Screen 05/04/17 05/04/17 04:13 07:49 WBC RBC Hgb Hct MCV MCH MCHC RDW Plt Count MPV Neut % (Auto) Lymph % (Auto) [place] % (Auto) Eos % (Auto) Baso % (Auto) Neut # (Auto) Lymph # (Auto) [place] # (Auto) Eos # (Auto) Baso # (Auto) Immature Gran % Nucleated RBC % Immature Gran # Nucleated RBCs # Immature Plt Fraction INR PT Patient/Control Mix Sodium Potassium Chloride Carbon Dioxide Anion Gap BUN Creatinine GFR Calculation BUN/Creatinine Ratio Glucose POC Glucose 140 H Calculated Osmolality Calcium Magnesium Total Bilirubin AST ALT Alkaline Phosphatase Troponin I 0.016 Total Protein Albumin Globulin Albumin/Globulin Ratio TSH 3rd Generation Urine Color Urine Appearance Urine pH Ur Specific [place] Urine Protein Urine Glucose (UA) Urine Ketones Urine Blood Urine Nitrate Urine Bilirubin Urine Urobilinogen Urine Leukocytes Urine RBC Urine WBC Ur Squamous Epith Cells Urine Bacteria Urine Mucus Ur Culture Indicated? Urine Opiates Screen Ur Barbiturates Screen Ur Phencyclidine Scrn U Amphetamine/Methamph U Benzodiazepines Scrn U Cocaine Metab Screen U Cannabinoids Screen - Diagnostic Findings Procedure: Chest x-ray: report reviewed by me - EKG EKG results: interpreted by me EKG shows: sinus rhythm (APCs) <Daryl Rios - Last Filed: 05/04/17 10:53> History of Present Illness History of present illness: Patient personally interviewed and examined chart reviewed. I discussed his case with Laury Perry NP. Agree with the history and physical as well as the assessment. Followed by Dr. Hdz. The patient's had issues with near syncopal episodes palpitations but none these episodes have been captured Mr. Krishnamurthy is a 77 year old male in the emergency room on the office. The patient has refused to use a event monitor apparently because he does not really understand how to use the device and is very anxious about using it. He certainly needs evaluation with some type of rhythm detection device. He has a history of paroxysmal atrial fibrillation but is not clear whether this patient is having bradyarrhythmias or tachyarrhythmias as a cause of his symptomatology near syncopal episodes or whether they are totally dissociated from rhythm issues. I discussed with the patient carry out Linq monitor implantation and he is agreeable to this. I discussed the procedure how would be carried out reviewing the indication procedure. I discussed the risk of local infection bruising or swelling. He also has been on Eliquis and is to stop this for couple days which I think he will be safe to do so. We will start Eliquis post procedure. He agrees and desire to proceed with this and we will plan on doing this Tuesday and he will be able to be off Eliquis for 2 days. We will make sure that we have precertification for the device. Cardiology Physical Exam - Constitutional Vitals: Vital Signs Temp Pulse Resp BP Pulse Ox 97.8 F 80 18 135/85 98 05/04/17 08:00 05/04/17 08:57 05/04/17 10:38 05/04/17 08:00 05/04/17 08:00 Intake and Output 05/03/17 05/04/17 05/04/17 23:59 07:59 15:59 Intake Total 240 / 240 200 / 200 120 / 120 Output Total 475 / 475 Balance 240 / 240 -275 / -275 120 / 120 Intake: Oral 240 / 240 200 / 200 120 / 120 Output: Urine 475 / 475 Other: Voiding Method Urinal Toilet # Voids 1 1 # Bowel Movements 2 Weight 89.84 kg 90.265 kg Patient Weight 05/04/17 23:59 Weight 90.265 kg Result/EKG - Labs CBC & BMP: 05/03/17 15:41 05/03/17 15:41 Labs: Laboratory Results - last 24 hr 05/03/17 05/03/17 05/03/17 15:41 15:41 15:41 WBC 7.8 RBC 4.73 Hgb 13.7 L Hct 40.9 L MCV 86.5 L MCH 29 MCHC 33.5 RDW 12.1 Plt Count 170 MPV 10.1 Neut % (Auto) 64.3 Lymph % (Auto) 24.4 [place] % (Auto) 8.4 Eos % (Auto) 2.2 Baso % (Auto) 0.4 Neut # (Auto) 5.0 Lymph # (Auto) 1.9 [place] # (Auto) 0.7 Eos # (Auto) 0.2 Baso # (Auto) 0.0 Immature Gran % 0.3 Nucleated RBC % 0.0 Immature Gran # 0.02 Nucleated RBCs # 0.00 Immature Plt Fraction 0.0 INR 1.0 PT Patient/Control Mix 10.9 Sodium Potassium Chloride Carbon Dioxide Anion Gap BUN Creatinine GFR Calculation BUN/Creatinine Ratio Glucose POC Glucose Calculated Osmolality Calcium Magnesium 2.0 Total Bilirubin AST ALT Alkaline Phosphatase Troponin I Total Protein Albumin Globulin Albumin/Globulin Ratio TSH 3rd Generation Urine Color Urine Appearance Urine pH Ur Specific [place] Urine Protein Urine Glucose (UA) Urine Ketones Urine Blood Urine Nitrate Urine Bilirubin Urine Urobilinogen Urine Leukocytes Urine RBC Urine WBC Ur Squamous Epith Cells Urine Bacteria Urine Mucus Ur Culture Indicated? Urine Opiates Screen Ur Barbiturates Screen Ur Phencyclidine Scrn U Amphetamine/Methamph U Benzodiazepines Scrn U Cocaine Metab Screen U Cannabinoids Screen 05/03/17 05/03/17 05/03/17 15:41 17:04 17:04 WBC RBC Hgb Hct MCV MCH MCHC RDW Plt Count MPV Neut % (Auto) Lymph % (Auto) [place] % (Auto) Eos % (Auto) Baso % (Auto) Neut # (Auto) Lymph # (Auto) [place] # (Auto) Eos # (Auto) Baso # (Auto) Immature Gran % Nucleated RBC % Immature Gran # Nucleated RBCs # Immature Plt Fraction INR PT Patient/Control Mix Sodium 135 L Potassium 4.2 Chloride 100 Carbon Dioxide 27 Anion Gap 12.2 BUN 13 Creatinine 1.40 H GFR Calculation 59 BUN/Creatinine Ratio 9.00 Glucose 209 H POC Glucose Calculated Osmolality 275.1 Calcium 9.2 Magnesium Total Bilirubin 0.40 AST 10 ALT 21 Alkaline Phosphatase 124 H Troponin I < 0.015 Total Protein 6.5 Albumin 3.3 L Globulin 3.2 Albumin/Globulin Ratio 1.0 L TSH 3rd Generation 0.627 Urine Color Yellow Urine Appearance Clear Urine pH 5.0 Ur Specific [place] 1.012 Urine Protein 30 Urine Glucose (UA) 50 Urine Ketones Negative Urine Blood Negative Urine Nitrate Negative Urine Bilirubin Negative Urine Urobilinogen < 2.0 H Urine Leukocytes Negative Urine RBC 26 Urine WBC <1 Ur Squamous Epith Cells Occasional Urine Bacteria Occasional Urine Mucus Occasional Ur Culture Indicated? Not indicated Urine Opiates Screen Negative Ur Barbiturates Screen Negative Ur Phencyclidine Scrn Negative U Amphetamine/Methamph Negative U Benzodiazepines Scrn Negative U Cocaine Metab Screen Negative U Cannabinoids Screen Negative 05/03/17 05/03/17 05/04/17 20:36 20:57 00:06 WBC RBC Hgb Hct MCV MCH MCHC RDW Plt Count MPV Neut % (Auto) Lymph % (Auto) [place] % (Auto) Eos % (Auto) Baso % (Auto) Neut # (Auto) Lymph # (Auto) [place] # (Auto) Eos # (Auto) Baso # (Auto) Immature Gran % Nucleated RBC % Immature Gran # Nucleated RBCs # Immature Plt Fraction INR PT Patient/Control Mix Sodium Potassium Chloride Carbon Dioxide Anion Gap BUN Creatinine GFR Calculation BUN/Creatinine Ratio Glucose POC Glucose 138 H Calculated Osmolality Calcium Magnesium Total Bilirubin AST ALT Alkaline Phosphatase Troponin I < 0.015 < 0.015 Total Protein Albumin Globulin Albumin/Globulin Ratio TSH 3rd Generation Urine Color Urine Appearance Urine pH Ur Specific [place] Urine Protein Urine Glucose (UA) Urine Ketones Urine Blood Urine Nitrate Urine Bilirubin Urine Urobilinogen Urine Leukocytes Urine RBC Urine WBC Ur Squamous Epith Cells Urine Bacteria Urine Mucus Ur Culture Indicated? Urine Opiates Screen Ur Barbiturates Screen Ur Phencyclidine Scrn U Amphetamine/Methamph U Benzodiazepines Scrn U Cocaine Metab Screen U Cannabinoids Screen 05/04/17 05/04/17 04:13 07:49 WBC RBC Hgb Hct MCV MCH MCHC RDW Plt Count MPV Neut % (Auto) Lymph % (Auto) [place] % (Auto) Eos % (Auto) Baso % (Auto) Neut # (Auto) Lymph # (Auto) [place] # (Auto) Eos # (Auto) Baso # (Auto) Immature Gran % Nucleated RBC % Immature Gran # Nucleated RBCs # Immature Plt Fraction INR PT Patient/Control Mix Sodium Potassium Chloride Carbon Dioxide Anion Gap BUN Creatinine GFR Calculation BUN/Creatinine Ratio Glucose POC Glucose 140 H Calculated Osmolality Calcium Magnesium Total Bilirubin AST ALT Alkaline Phosphatase Troponin I 0.016 Total Protein Albumin Globulin Albumin/Globulin Ratio TSH 3rd Generation Urine Color Urine Appearance Urine pH Ur Specific [place] Urine Protein Urine Glucose (UA) Urine Ketones Urine Blood Urine Nitrate Urine Bilirubin Urine Urobilinogen Urine Leukocytes Urine RBC Urine WBC Ur Squamous Epith Cells Urine Bacteria Urine Mucus Ur Culture Indicated? Urine Opiates Screen Ur Barbiturates Screen Ur Phencyclidine Scrn U Amphetamine/Methamph U Benzodiazepines Scrn U Cocaine Metab Screen U Cannabinoids Screen
--- NOTE | 2017-05-04 10:10 | Discharge Summary ---
Hospital Course - Hospital Course Hospital Course: [employer] HEAD: DR. BRIAN RODRIGUEZ SUMMARY: Mr. Krishnamurthy, 77WM, with risk factors significant for: Known CAD ( status post CABG and AVR with tissue valve 2012), hypertension, dyslipidemia, diabetes, CVA, sedentary lifestyle. History of paroxysmal atrial fibrillation for which he takes Eliquis for stroke prevention. Patient did have stroke after his CABG and again this past year. At that time however, he was not taking Eliquis. No additional CVA or TIA since initiation of Eliquis. Admitted May 03, 2017 after experiencing an episode of weakness, near syncope upon waking. He was brought to the emergency department for hypotension with a reported heart rate of 130-140s, blood pressure in the 70s. He has had a syncopal episode recently and underwent CT of head which revealed no acute abnormality, no hemorrhage. During the hospital stay, no arrhythmia including atrial fibrillation noted. He did have regular sinus rhythm with frequent PACs. Magnesium was increased from 400 mg twice daily to 400 mg orally 3 times daily. Also, patient had previously declined event monitor and/ or Link device. However, given the fact that patient has had near syncope, recurrent he is now agreeable to undergo Link device. He is taking Eliquis. Dr. Rios has seen and evaluated patient in he will be discharged home today returning Saturday, May 06, 2017 to [facility] for implantation to be performed by Dr. Rios. We are holding his Eliquis as of now and this may be restarted after Linq implantation. Also, patient will be scheduled for outpatient sleep study with Dr. Singletary. His symptoms are certainly concerning for obstructive sleep apnea. Also, if he does not have home health already, will arrange for home health to assist with medication management and general health needs as he is at high risk for recurrent falls and debility. Having felt he is met maximal medical therapy, patient is being discharged home in stable condition. He will also be given a follow-up appointment with in approximately 1 month. Patient will resume all preadmission medications with the following exception: Hold Eliquis at this time but resume after reveal Link implant Increase Magnesium oxide 400 mg orally twice daily to 400 mg orally 3 times daily Patient will not be discharged home on an aspirin as he is currently taking Eliquis, is at high risk for falls and has a history of anemia As noted above. The patient has been precertified for his Linq monitor implantation. We will plan on carrying this out Tuesday morning. Given the patient's questions were answered and we did again review the device procedure with him. - Time spent with patient Time with patient DS: Greater than 30 minutes Diagnosis - Discharge Diagnosis (1) Sleep disorder Status: Chronic (2) History of aortic valve replacement with bioprosthetic valve Status: Chronic (3) History of heart bypass surgery Status: Chronic (4) Palpitations Status: Chronic (5) Paroxysmal atrial fibrillation Status: Chronic (6) Chronic anticoagulation Status: Chronic (7) Coronary artery disease Status: Chronic (8) Hyperlipidemia Status: Chronic (9) Hypertension Status: Chronic (10) Syncope, near Status: Acute Specialty Discharge - Follow Up or Referrals Follow up with: Selin Singletary MD [Physician] - (next available appointment. Symptoms concerning for sleep apnea) Brian Rodriguez MD [Physician] - (1 month BMP, Mg, CBC) Discharge Plan - Discharge Data Condition at Discharge: Stable Discharge Diet: heart healthy Activity: resume usual activities as tolerated Hygiene: no restrictions Weight Bearing at Discharge: full weight bearing Driving: not until seen by doctor Contact your physician if you experience:: fever over 101, Difficulty voiding, Redness or swelling, Nausea/Vomiting, Shortness of breath, Bleeding, pain uncontrolled by pain medications - Discharge Medications Continue Levothyroxine Sodium 25 mcg PO QAM glipiZIDE [Glipizide] 10 mg PO BID Tamsulosin HCl 0.4 mg PO QAM Carvedilol 25 mg PO BID raNITIdine HCl [Ranitidine HCl] 150 mg PO QAM Ascorbic Acid [Vitamin C] 1,000 mg PO BID #120 tablet Metformin HCl 500 mg PO BID Ferrous Sulfate 325 mg PO TID Pravastatin Sodium 40 mg PO BEDTIME Changed Magnesium Oxide 400 mg PO TID #90 tablet Discontinued Apixaban [Eliquis] 5 mg PO BID - Follow Up or Referral Follow Up: Brian Rodriguez MD [Physician] - (1 month BMP, Mg, CBC) Selin Singletary MD [Physician] - (next available appointment. Symptoms concerning for sleep apnea) - Forms/Instructions Additional Discharge Instructions: Please instruct patient to be n.p.o. after midnight night. He is to return to [place] catheterization lab Tuesday, May 06, 2017 at 0700 reveal Linq implant to be performed by Dr. Rios at 0800. Also, please reinforce holding Eliquis. He is not to resume Eliquis at discharge. (Must be held 48 hours prior to device implant). Also, please remind patient he will be discharged home Tuesday afternoon as this is an outpatient procedure. Exam - Constitutional Vitals: Period Temp Pulse Resp BP Sys/Warner Pulse Ox Last 24 Hr 97.8 F-98.1 F 69-86 16-20 102-177/64-94 93-100 Exam: General: [Appears well with no apparent distress.] [Pleasant and cooperative. ] [Appears comfortable.] HEENT: [PERRL, normocephalic, atraumatic. Mucous membranes moist. No jaundice noted. Conjunctiva moist and clear, sclerae anicteric] Neck: No JVD/HJR, no thyromegaly or lymphadenopathy noted. No carotid bruit appreciated Cardiac: [Regular rate and rhythm.] [Snap of aortic valve upon auscultation Lungs: [Clear to auscultation without accessory muscle use to assist the respiratory pattern.] Not requiring oxygen Abdomen: Soft, bowel sounds normoactive. Nontender and nondistended. No abdominal bruit or thrill noted. No masses noted. Musculoskeletal: No fluid collection. Decreased range of motion is noted. Extremities: No clubbing, cyanosis noted. [ No edema noted.] Upper extremity pulses 2+. Lower extremity pulses 2+. Capillary refill less than 3 seconds. Skin: No unusual lesions or rashes. No skin breakdown appreciated. Neuro: Awake, alert and oriented 3. Moves all extremities well without hemiparesis or paralysis. No essential tremor is appreciated. Discharge Results Labs on day of discharge: Labs from last 24 hours 05/04/17 05/04/17 05/04/17 07:49 04:13 00:06 WBC RBC Hgb Hct MCV MCH MCHC RDW Plt Count MPV Neut % (Auto) Lymph % (Auto) Ector % (Auto) Eos % (Auto) Baso % (Auto) Neut # (Auto) Lymph # (Auto) Ector # (Auto) Eos # (Auto) Baso # (Auto) Immature Gran % Nucleated RBC % Immature Gran # Nucleated RBCs # Immature Plt Fraction INR PT Patient/Control Mix Sodium Potassium Chloride Carbon Dioxide Anion Gap BUN Creatinine GFR Calculation BUN/Creatinine Ratio Glucose POC Glucose 140 H Calculated Osmolality Calcium Magnesium Total Bilirubin AST ALT Alkaline Phosphatase Troponin I 0.016 < 0.015 Total Protein Albumin Globulin Albumin/Globulin Ratio TSH 3rd Generation Urine Color Urine Appearance Urine pH Ur Specific Ely Urine Protein Urine Glucose (UA) Urine Ketones Urine Blood Urine Nitrate Urine Bilirubin Urine Urobilinogen Urine Leukocytes Urine RBC Urine WBC Ur Squamous Epith Cells Urine Bacteria Urine Mucus Ur Culture Indicated? Urine Opiates Screen Ur Barbiturates Screen Ur Phencyclidine Scrn U Amphetamine/Methamph U Benzodiazepines Scrn U Cocaine Metab Screen U Cannabinoids Screen 05/03/17 05/03/17 05/03/17 20:57 20:36 17:04 WBC RBC Hgb Hct MCV MCH MCHC RDW Plt Count MPV Neut % (Auto) Lymph % (Auto) Ector % (Auto) Eos % (Auto) Baso % (Auto) Neut # (Auto) Lymph # (Auto) Ector # (Auto) Eos # (Auto) Baso # (Auto) Immature Gran % Nucleated RBC % Immature Gran # Nucleated RBCs # Immature Plt Fraction INR PT Patient/Control Mix Sodium Potassium Chloride Carbon Dioxide Anion Gap BUN Creatinine GFR Calculation BUN/Creatinine Ratio Glucose POC Glucose 138 H Calculated Osmolality Calcium Magnesium Total Bilirubin AST ALT Alkaline Phosphatase Troponin I < 0.015 Total Protein Albumin Globulin Albumin/Globulin Ratio TSH 3rd Generation Urine Color Yellow Urine Appearance Clear Urine pH 5.0 Ur Specific Ely 1.012 Urine Protein 30 Urine Glucose (UA) 50 Urine Ketones Negative Urine Blood Negative Urine Nitrate Negative Urine Bilirubin Negative Urine Urobilinogen < 2.0 H Urine Leukocytes Negative Urine RBC 26 Urine WBC <1 Ur Squamous Epith Cells Occasional Urine Bacteria Occasional Urine Mucus Occasional Ur Culture Indicated? Not indicated Urine Opiates Screen Ur Barbiturates Screen Ur Phencyclidine Scrn U Amphetamine/Methamph U Benzodiazepines Scrn U Cocaine Metab Screen U Cannabinoids Screen 05/03/17 05/03/17 05/03/17 17:04 15:41 15:41 WBC 7.8 RBC 4.73 Hgb 13.7 L Hct 40.9 L MCV 86.5 L MCH 29 MCHC 33.5 RDW 12.1 Plt Count 170 MPV 10.1 Neut % (Auto) 64.3 Lymph % (Auto) 24.4 Ector % (Auto) 8.4 Eos % (Auto) 2.2 Baso % (Auto) 0.4 Neut # (Auto) 5.0 Lymph # (Auto) 1.9 Ector # (Auto) 0.7 Eos # (Auto) 0.2 Baso # (Auto) 0.0 Immature Gran % 0.3 Nucleated RBC % 0.0 Immature Gran # 0.02 Nucleated RBCs # 0.00 Immature Plt Fraction 0.0 INR PT Patient/Control Mix Sodium 135 L Potassium 4.2 Chloride 100 Carbon Dioxide 27 Anion Gap 12.2 BUN 13 Creatinine 1.40 H GFR Calculation 59 BUN/Creatinine Ratio 9.00 Glucose 209 H POC Glucose Calculated Osmolality 275.1 Calcium 9.2 Magnesium Total Bilirubin 0.40 AST 10 ALT 21 Alkaline Phosphatase 124 H Troponin I < 0.015 Total Protein 6.5 Albumin 3.3 L Globulin 3.2 Albumin/Globulin Ratio 1.0 L TSH 3rd Generation 0.627 Urine Color Urine Appearance Urine pH Ur Specific E[place] Urine Protein Urine Glucose (UA) Urine Ketones Urine Blood Urine Nitrate Urine Bilirubin Urine Urobilinogen Urine Leukocytes Urine RBC Urine WBC Ur Squamous Epith Cells Urine Bacteria Urine Mucus Ur Culture Indicated? Urine Opiates Screen Negative Ur Barbiturates Screen Negative Ur Phencyclidine Scrn Negative U Amphetamine/Methamph Negative U Benzodiazepines Scrn Negative U Cocaine Metab Screen Negative U Cannabinoids Screen Negative 05/03/17 05/03/17 15:41 15:41 WBC RBC Hgb Hct MCV MCH MCHC RDW Plt Count MPV Neut % (Auto) Lymph % (Auto) Ector % (Auto) Eos % (Auto) Baso % (Auto) Neut # (Auto) Lymph # (Auto) Ector # (Auto) Eos # (Auto) Baso # (Auto) Immature Gran % Nucleated RBC % Immature Gran # Nucleated RBCs # Immature Plt Fraction INR 1.0 PT Patient/Control Mix 10.9 Sodium Potassium Chloride Carbon Dioxide Anion Gap BUN Creatinine GFR Calculation BUN/Creatinine Ratio Glucose POC Glucose Calculated Osmolality Calcium Magnesium 2.0 Total Bilirubin AST ALT Alkaline Phosphatase Troponin I Total Protein Albumin Globulin Albumin/Globulin Ratio TSH 3rd Generation Urine Color Urine Appearance Urine pH Ur Specific Ely Urine Protein Urine Glucose (UA) Urine Ketones Urine Blood Urine Nitrate Urine Bilirubin Urine Urobilinogen Urine Leukocytes Urine RBC Urine WBC Ur Squamous Epith Cells Urine Bacteria Urine Mucus Ur Culture Indicated? Urine Opiates Screen Ur Barbiturates Screen Ur Phencyclidine Scrn U Amphetamine/Methamph U Benzodiazepines Scrn U Cocaine Metab Screen U Cannabinoids Screen - Imaging and Cardiology Cardiology Procedure: report reviewed by Procedure: Chest x-ray: report reviewed by DS: Provider Date of admission: 05/03/17 18:17 Primary care physician: . No PCP Attending physician on admission: Kyle Muñoz MD Consults: 05/03/17 20:48 Consult to Dietitian [CONS] Routine Reason for Dietitian: Dietary Consult 05/04/17 10:19 Consult to Case Mgmt/Social Srvs [CONS] Routine Reason for Case Mgmt/Social Srvs: Home Health Consult Comment: HH at discharge. Being discharged today. Discharging clinician: Laury Perry NP Expected date of discharge: 05/04/17
[2017-05-04 12:13] VITALS: BP 129/78
[2017-05-04] MEDS ORDERED: MAGNESIUM OXIDE 400 MG TABLET PO SCH (15:00)
--- NOTE | 2017-05-09 05:28 | Order Completion Report ---
See report scanned to EMR
== END 2017-05-04 14:25 | disposition home health service (06) ==
LOC: N.EDINP 14:59 → N.ED 14:59 → N.TELES 19:23
PROVIDERS: ADMIT Internal Medicine Cardiovascular Disease; ATTEND Internal Medicine Cardiovascular Disease